=== PATIENT | female | born 1945 | race Caucasian/White ===

== ENCOUNTER 2017-11-02 18:30 | Emergency (ER) | payer OTHER ==
[~2017-11-02] VITALS: Ht 167.6 cm; Wt 74.8 kg
[~2017-11-02 18:30] MED LIST: CENTRUM SILVER1 TAB; IBUPROFEN800 MG PO; OMEGA-31000 MG; ORPH100T PO
[2017-11-02] MEDS ORDERED: COZAAR50 MG (19:19)
[2017-11-02] MEDS ORDERED: LIPITOR20 MG (19:20)
== END 2017-11-02 22:05 | disposition home or self-care (01) ==
LOC: ER 18:30
DX: J40 Bronchitis, not specified as acute or chronic (principal)

== ENCOUNTER 2018-06-16 10:16 | Outpatient (CLI) | payer OTHER ==
[~2018-06-16 10:16] MED LIST changes: +COZAAR50 MG; +LIPITOR20 MG
== END 2018-06-16 15:53 | disposition home or self-care (01) ==
LOC: RAD 10:16
DX: M19.90 Unspecified osteoarthritis, unspecified site (principal); M12.9 Arthropathy, unspecified

== ENCOUNTER 2020-08-01 07:50 | Day surgery (SDC) | payer OTHER ==
[~2020-08-01 07:50] MED LIST changes: +VITAL-D RX TAB1 EACH PO
== END 2020-08-02 11:30 | disposition home or self-care (01) ==
LOC: CIR.AMB 07:50
PROVIDERS: ATTEND Orthopaedic Surgery Hand Surgery
DX: S42.332A Displaced oblique fracture of shaft of humerus, left arm, initial encounter for closed fracture (principal); Z20.822 Contact with and (suspected) exposure to COVID-19
CPT/HCPCS: 23615; C1776

== ENCOUNTER 2021-02-16 12:33 | Day surgery (SDC) | payer OTHER ==
[~2021-02-16 12:33] MED LIST changes: +BETIMOL5 ML OP
[2021-02-27] MEDS ORDERED: VITAMIN D3 PO (14:44)
== END 2021-02-16 16:50 | disposition home or self-care (01) ==
LOC: CIR.AMB 12:33
PROVIDERS: ATTEND Student in an Organized Health Care Education/Training Program
DX: N39.41 Urge incontinence (principal); Z20.822 Contact with and (suspected) exposure to COVID-19
CPT/HCPCS: 64581; C1778

== ENCOUNTER 2021-03-02 12:41 | Day surgery (SDC) | payer OTHER ==
[~2021-03-02 12:41] MED LIST changes: +VITAMIN D3 PO
== END 2021-03-02 17:10 | disposition home or self-care (01) ==
LOC: CIR.AMB 12:41
PROVIDERS: ATTEND Student in an Organized Health Care Education/Training Program
DX: N39.41 Urge incontinence (principal); Z20.822 Contact with and (suspected) exposure to COVID-19
CPT/HCPCS: 64590; 95972; L8679

== ENCOUNTER 2022-09-11 10:45 | Outpatient (CLI) | payer OTHER | END 2022-09-11 10:51 | disposition home or self-care (01) | LOC: EKG 10:45 | PROVIDERS: ATTEND Internal Medicine Cardiovascular Disease | DX: I10 Essential (primary) hypertension (principal) ==

== ENCOUNTER 2022-09-18 07:33 | Outpatient (CLI) | payer OTHER | END 2022-09-18 07:37 | disposition home or self-care (01) | LOC: NUCLEAR 07:33 | PROVIDERS: ATTEND Internal Medicine Cardiovascular Disease | DX: R07.9 Chest pain, unspecified (principal) ==